=== PATIENT | female | born 1985 | race Caucasian/White ===

== ENCOUNTER 2020-08-20 14:08 | Emergency (ER) | payer MEDICAID ==
[~2020-08-20] VITALS: Ht 167.6 cm; Wt 45.4 kg
--- NOTE | 2020-08-20 14:08 | NUR ---
Pt biba and placed in bed 7.
[2020-08-20 14:14] VITALS: BP 92/48
--- NOTE | 2020-08-20 14:25 | NUR ---
Dr. Shetty at pt bedside for further evaluation.
[2020-08-20] MEDS ORDERED: NACL 0.9% 1,000 ML IV ONE (14:30)
[2020-08-20] MEDS ORDERED: ONDANSETRON 4 MG/2 ML VIAL IVP ONE (14:30)
--- NOTE | 2020-08-20 14:38 | NUR ---
35 YEAR OLD FEMALE COMPLAINS OF NOT FEELING WELL TODAY. PT STATES SHE FEELS DEHYDRATED AND HAS SOME NAUSEA. PT DENIES VOMITTING OR DIARRHEA. PT AOX4, BREATHING EVEN AND UNLABORED, SKIN WARM AND DRY. BED IN LOWEST POSITION, LOCKED, BED RAIL UPX1. PMH - OA, Scoliosis, Sciatica, PTSD ALLERGIES - NKA
--- NOTE | 2020-08-20 14:40 | NUR ---
PT GIVEN SANDWITCH AND JUICE, IS EATING
[2020-08-20] MEDS ORDERED: ONDA8TAB87 PO (15:28)
[2020-08-20] MEDS ORDERED: LOPE-289 PO (15:28)
[2020-08-20] MEDS ORDERED: IBUP-2213 PO (15:28)
[2020-08-20 15:55] VITALS: BP 129/86
--- NOTE | 2020-08-20 15:56 | NUR ---
Patient discharged with v/s stable. Written and verbal after care instructions about nausea, vomitting given and explained. Patient alert, oriented and verbalized understanding of instructions. Ambulatory with steady gait. All questions addressed prior to discharge. ID band removed. Patient advised to follow up with PMD. Rx of ibuprofen, imodium, zofran given. Patient educated on indication of medication including possible reaction and side effects. Opportunity to ask questions provided and answered.
--- NOTE | 2020-08-20 15:57 | NUR ---
Patient given written and verbal discharge instructions and verbalizes understanding. Given copies of tests performed during visit. Patient is awake, alert and oriented. Ambulatory with steady gait. Refuses offer of correction placement. Given list of available shelters in surrounding areas. Pt clothes appropriate for weather, given food packet for discharge
== END 2020-08-20 15:57 | disposition home or self-care (01) ==
LOC: MED 14:08
DX: R11.0 Nausea (principal); R10.9 Unspecified abdominal pain; R19.7 Diarrhea, unspecified; R63.8 Other symptoms and signs concerning food and fluid intake
CPT/HCPCS: 81002; 81025; 96361; 96374; 99283; J2405; J7030